=== PATIENT | male | born 1955 ===

== ENCOUNTER 2018-08-14 09:00 | Outpatient (CLI) | payer SELFPAY ==
[2018-08-14 09:48] LABS: HEMOGLOBIN A1C 5.7 % (4.5-6.2)
[2018-08-14 10:02] LABS: CHOL/HDL RATIO 7.16 (0.00-4.99)
== END 2018-08-14 23:59 | disposition home or self-care (01) ==
LOC: HW HEART 09:00
DX: Z13.6 Encounter for screening for cardiovascular disorders (principal); I44.4 Left anterior fascicular block; R00.1 Bradycardia, unspecified
CPT/HCPCS: 36415